=== PATIENT | female | born 1950 | race Hispanic/Latino ===

== ENCOUNTER → 2022-09-29 | Outpatient (CLI) | payer OTHER | END | disposition home or self-care (01) | LOC: RAH 15:27 | PROVIDERS: ATTEND Internal Medicine | DX: Z01.818 Encounter for other preprocedural examination (principal); R73.03 Prediabetes; E30.0 Delayed puberty; E78.00 Pure hypercholesterolemia, unspecified | CPT/HCPCS: 71046 ==